=== PATIENT | female | born 1965 | race African-American/Black ===

== ENCOUNTER 2016-04-28 17:27 | Emergency (ER) | payer MEDICAID ==
[~2016-04-28] VITALS: Ht 160 cm; Wt 68.0 kg
[~2016-04-28 17:27] MED LIST: CHLORPHENIRAMINE4 MG ORAL; CYCLOBENZAPRINE10 MG ORAL; IBUPROFEN600 MG ORAL; KEFLEX500 MG ORAL; LEVAQUIN500 MG ORAL; NITROFURANTOIN100 M2 ORAL; NKM; NORCO 5-325 TA1 EACH ORAL; SUDAFED60 MG ORAL
[2016-04-28 18:05] VITALS: BP 142/87
--- NOTE | 2016-04-28 18:54 | Emergency Room Report ---
History of Present Illness General Chief Complaint: Skin Rash/Abscess Source: Patient Present Illness HPI 51-year-old female presents to emergency Department complaining of multiple swollen, erythematous and very itchy lesions located on the forehead and posterior neck since yesterday. Patient states she believes she may have some spider bites or insect bites. Patient denies nausea, vomiting, fevers, chills, recent travel. Patient reports mild tenderness and states that itching is the primary symptom. Patient denies lesions elsewhere or rashes. Denies CP, Palpitations, LOC, AMS, dizziness, Changes in Vision, Sensation, paresthesias, or a sudden severe headache. Allergies: Coded Allergies: No Known Allergies (Verified Allergy, Mild, 02/22/10) Patient History Past Medical History: see triage record Past Surgical History: none Pertinent Family History: none Last Menstrual Period: 04/18/16 Now: No Immunizations: UTD Reviewed Nursing Documentation: PMH: Agreed, PSxH: Agreed Nursing Documentation-PMH Past Medical History: No Stated History Review of Systems All Other Systems: negative except mentioned in HPI Physical Exam Vital Signs Date Time Temp Pulse Resp B/P Pulse Ox O2 Delivery O2 Flow Rate FiO2 04/28/16 18:01 98.2 74 14 142/87 100 Room Air Sp02 EP Interpretation: reviewed, normal General Appearance: no apparent distress, alert, GCS 15, non-toxic Head: normocephalic, atraumatic, other - One 3mm rasied areas with erythema consistent with insect bite on the left side of the forehead Eyes: bilateral eye PERRL, bilateral eye normal inspection ENT: hearing grossly normal, normal pharynx, no angioedema, normal voice Neck: full range of motion, supple/symm/no masses, other - 3- 3mm rasied areas with erythema consistent with insect bites . on the left posterior neck. Respiratory: chest non-tender, lungs clear, normal breath sounds, no wheezing, speaking full sentences Cardiovascular #1: regular rate, rhythm, no edema Musculoskeletal: back normal, gait/station normal, normal range of motion, non- tender Neurologic: alert, oriented x3, responsive, motor strength/tone normal, sensory intact, speech normal Psychiatric: judgement/insight normal, memory normal, mood/affect normal, no suicidal/homicidal ideation Skin: normal color, no rash, warm/dry, well hydrated, other - total of 4 3mm rasied areas with erythema consistent with insect bites on the left side of the forehead and posterior neck, no evidence of secondary infection, no d/c or crusting noted. Lymphatic: no adenopathy Medical Decision Making PA Attestation Dr. Frazier is my supervising Physician whom patient management has been discussed with. Diagnostic Impression: Primary Impression: Multiple insect bites ER Course 51-year-old female presents to emergency Department complaining of multiple swollen, erythematous and very itchy lesions located on the forehead and posterior neck since yesterday. Patient states she believes she may have some spider bites or insect bites. Ddx considered but are not limited to cellulitis, scabies, insect bites, tic bites, spider bites, contact dermatitis, Drug reaction, allergic reaction, fungal infection, lice. Vital signs: are WNL, pt. is afebrile H&PE are most consistent with insect bites, no evidence of secondary bacterial infection at this time. ORDERS: none required at this time, the diagnosis is clinical ED INTERVENTIONS: -IM Benadryl DISCHARGE: At this time pt. is stable for d/c to home. Will provide printed patient care instructions, and any necessary prescriptions. Care plan and follow up instructions have been discussed with the patient prior to discharge. Last Vital Signs Date Time Temp Pulse Resp B/P Pulse Ox O2 Delivery O2 Flow Rate FiO2 04/28/16 18:05 98.2 14 142/87 100 Room Air 04/28/16 18:01 74 Disposition: HOME, SELF-CARE Condition: Stable Patient Instructions: Insect Bite, [id number] Additional Instructions: Take medications as directed. Follow up with PCP in 3-5 days Return sooner to ED if new symptoms occur, or current symptoms become worse. Do not drink alcohol, drive, or operate heavy machinery while taking hydroxyzine as this may cause drowsiness. - Please note that this Emergency Department Report was dictated using [employer] guard technology software, occasionally this can lead to erroneous entry secondary to interpretation by the dictation equipment. Lorena Joseph Apr 28, 2016 18:54
[2016-04-28] MEDS ORDERED: ANTI-ITCH28 G1 TP (18:59)
[2016-04-28] MEDS ORDERED: HM DOUBLE ANT28.4 G1 TP (18:59)
[2016-04-28] MEDS ORDERED: HYDROXYZINE HCL25 M1 PO (18:59)
[2016-04-28] MEDS ORDERED: DiphenhydrAMINE 50mg/ml Inj IM ONE (19:00)
[2016-04-28 19:06] VITALS: BP 135/81
== END 2016-04-28 19:10 | disposition home or self-care (01) ==
LOC: EMR 18:33
DX: S00.86XA Insect bite (nonvenomous) of other part of head, initial encounter (principal); S10.86XA Insect bite of other specified part of neck, initial encounter; W57.XXXA Bitten or stung by nonvenomous insect and other nonvenomous arthropods, initial encounter; Y92.9 Unspecified place or not applicable
CPT/HCPCS: 96372; 99283; J1200

== ENCOUNTER 2016-07-11 09:54 | Emergency (ER) | payer MEDICAID ==
[~2016-07-11] VITALS: Ht 160 cm; Wt 68.0 kg
[~2016-07-11 09:54] MED LIST changes: +ANTI-ITCH28 G1 TP; +HM DOUBLE ANT28.4 G1 TP; +HYDROXYZINE HCL25 M1 PO
[2016-07-11] MEDS ORDERED: AZITHROMYCIN250 MG ORAL (10:21)
[2016-07-11] MEDS ORDERED: PROMETHAZINE-C118 M1 ORAL (10:21)
[2016-07-11 10:32] VITALS: BP 132/87
[2016-07-11 10:34] VITALS: BP 132/87
--- NOTE | 2016-07-11 11:30 | Emergency Room Report ---
History of Present Illness General Chief Complaint: Upper Respiratory Illness Present Illness HPI 51-year-old female presents ED complaining of cough and congestive symptoms times one week. States that cough is productive of yellowish sputum. Patient notes chills and bodyaches. pain is 5/10, dull, nonradiating. Afebrile in triage. Denies shortness of breath. Denies earache or sore throat. States symptoms have not improved in her in fact getting worse. No other aggravating or relieving factors. Denies any other associated symptoms Allergies: Coded Allergies: No Known Allergies (Verified Allergy, Mild, 02/22/10) Patient History Past Medical History: none Past Surgical History: none Pertinent Family History: none Social History: Denies: alcohol use, drug use, smoking Last Menstrual Period: 3 weeks ago Now: No Immunizations: UTD Reviewed Nursing Documentation: PMH: Agreed, PSxH: Agreed Nursing Documentation-PMH Past Medical History: No Stated History Review of Systems All Other Systems: negative except mentioned in HPI Physical Exam Vital Signs Date Time Temp Pulse Resp B/P Pulse Ox O2 Delivery O2 Flow Rate FiO2 07/11/16 09:58 75.9 75 16 132/87 98 Room Air Sp02 EP Interpretation: reviewed, normal General Appearance: no apparent distress, alert, GCS 15, non-toxic Head: normocephalic, atraumatic Eyes: bilateral eye PERRL, bilateral eye normal inspection ENT: hearing grossly normal, normal pharynx, no angioedema, normal voice Neck: full range of motion, supple/symm/no masses Respiratory: chest non-tender, lungs clear, normal breath sounds, speaking full sentences Cardiovascular #1: regular rate, rhythm, no edema Cardiovascular #2: 2+ carotid (R), 2+ carotid (L), 2+ radial (R), 2+ radial (L) , 2+ dorsalis pedis (R), 2+ dorsalis pedis (L) Gastrointestinal: normal bowel sounds, non tender, soft, non-distended, no guarding, no rebound Rectal: deferred Genitourinary: normal inspection, no CVA tenderness Musculoskeletal: back normal, gait/station normal, normal range of motion, non- tender Neurologic: alert, oriented x3, responsive, motor strength/tone normal, sensory intact, speech normal Psychiatric: judgement/insight normal, memory normal, mood/affect normal, no suicidal/homicidal ideation Reflexes: 3+ bicep (R), 3+ bicep (L), 3+ tricep (R), 3+ tricep (L), 3+ knee (R) , 3+ knee (L) Skin: normal color, no rash, warm/dry, well hydrated Lymphatic: no adenopathy Medical Decision Making Diagnostic Impression: Primary Impression: Atypical pneumonia ER Course Hospital Course 51-year-old female presents to ED complaining of cough, bodyaches, chills x 1 week Differential diagnoses include: URI, pharyngitis, otitis media, asthma Clinical course Patient placed on stretcher. After initial history, physical exam reveals a female in no acute distress. Bilateral TM unremarkable. No pharyngeal erythema. No tonsillar exudates. No lymphadenopathy. lungs clear. abdomen soft. Given persistence of symptoms we will treat as a typical pneumonia and prescribe antibiotics Diagnosis - atypical pneumonia Stable and discharged home with Rx Zpack, cough syrup. Instructed to followup with PMD. Return to ED if symptoms recur or worsen Last Vital Signs Date Time Temp Pulse Resp B/P Pulse Ox O2 Delivery O2 Flow Rate FiO2 07/11/16 10:34 75.9 75 16 132/87 98 Room Air Status: improved Disposition: HOME, SELF-CARE Condition: Stable Scripts Codeine/Promethazine Hcl* (PROMETHAZINE-CODEINE SYRUP*) 118 Ml Syrup 5 ML ORAL Q6H Y for For Cough, #118 ML 0 Refills Prov: QUINN ACOSTA M.D. 07/11/16 Azithromycin* (ZITHROMAX*) 250 Mg Tablet 250 MG ORAL DAILY, #6 TAB 0 Refills Take two tablets by mouth today, then take one tablet by mouth daily for four days Prov: QUINN ACOSTA M.D. 07/11/16 Referrals: [facility],REFERRING (PCP) Patient Instructions: Community-Acquired Pneumonia, Adult, [id number] QUINN ACOSTA M.D. Jul 11, 2016 11:30
== END 2016-07-11 10:35 | disposition home or self-care (01) ==
LOC: EMR 10:23
DX: J18.9 Pneumonia, unspecified organism (principal)
CPT/HCPCS: 99284

== ENCOUNTER 2016-08-25 23:12 | Emergency (ER) | payer MEDICAID ==
[~2016-08-25] VITALS: Ht 167.6 cm; Wt 68.0 kg
[~2016-08-25 23:12] MED LIST changes: +AZITHROMYCIN250 MG ORAL; +PROMETHAZINE-C118 M1 ORAL
[2016-08-25 23:20] VITALS: BP 140/90
[2016-08-25 23:35] LABS: APPEARANCE,URINE CLEAR; KETONES,URINE NEGATIVE (NEGATIVE); LEUKOCYTE ESTERASE ,URINE 1+ (NEGATIVE); NITRITE,URINE NEGATIVE (NEGATIVE); PH,URINE 7 (4.5-8.0); PROTEIN,URINE NEGATIVE (NEGATIVE); UROBILINOGEN,URINE 1 MG/DL (0.0-1.0)
[2016-08-25 23:55] LABS: BACTERIA,URINE FEW /HPF; RBC,URINE 0-2 /HPF (0 - 2); SQUAMOUS EPITHELIAL CELL,UR FEW /LPF (NONE/OCC); WBC,URINE 0-2 /HPF (0 - 2)
[2016-08-26 01:20] VITALS: BP 145/91
--- NOTE | 2016-08-26 01:55 | Emergency Room Report ---
History of Present Illness General Chief Complaint: Female Urogenital Problems Source: Patient Present Illness HPI 51 YOF with prior history of trichomonas STD came for "STD check" because condom broke last night during intercourse. Denies dysuria, polyuria, abd pain, fever/chills. Allergies: Coded Allergies: No Known Allergies (Verified , 08/25/16) Patient History Past Medical History: none Past Surgical History: none Pertinent Family History: none Social History: Denies: alcohol use, drug use, smoking Last Menstrual Period: 07/18/16 Now: No Immunizations: UTD Reviewed Nursing Documentation: PMH: Agreed, PSxH: Agreed Nursing Documentation-PMH Past Medical History: No Stated History Review of Systems All Other Systems: negative except mentioned in HPI Physical Exam Vital Signs Date Time Temp Pulse Resp B/P Pulse Ox O2 Delivery O2 Flow Rate FiO2 08/25/16 23:13 98.2 69 16 140/90 100 Room Air Sp02 EP Interpretation: reviewed, normal General Appearance: normal inspection, well appearing, no apparent distress, alert, GCS 15, non-toxic Head: normocephalic, atraumatic Eyes: bilateral eye EOMI, bilateral eye PERRL ENT: normal ENT inspection, hearing grossly normal, normal voice Neck: normal inspection, full range of motion, supple, no bony tend Respiratory: normal inspection, lungs clear, normal breath sounds, no respiratory distress, no retraction, no wheezing Cardiovascular #1: regular rate, rhythm, no edema Gastrointestinal: normal inspection, normal bowel sounds, non tender, soft, no guarding, no hernia Genitourinary: no CVA tenderness Musculoskeletal: normal inspection, back normal, normal range of motion, Jaylin' s Sign negative Neurologic: normal inspection, alert, oriented x3, responsive, storekeeper engineering III-XII nml as tested, motor strength/tone normal, speech normal Psychiatric: normal inspection, judgement/insight normal, mood/affect normal Skin: normal inspection, normal color, no rash Lymphatic: normal inspection Medical Decision Making Diagnostic Impression: Primary Impression: Exposure to STD ER Course Not UA grossly normal Advised PMD followup or STD clinic for STD checks DC Last Vital Signs Date Time Temp Pulse Resp B/P Pulse Ox O2 Delivery O2 Flow Rate FiO2 08/26/16 01:20 98.2 71 19 145/91 100 Room Air Status: improved Disposition: HOME, SELF-CARE Condition: Improved Patient Instructions: Dysuria JARRELL MAN M.D. Aug 26, 2016 01:55
== END 2016-08-26 01:20 | disposition home or self-care (01) ==
LOC: EMR 23:58
DX: Z20.2 Contact with and (suspected) exposure to infections with a predominantly sexual mode of transmission (principal)
CPT/HCPCS: 81003; 81025; 99283

== ENCOUNTER 2017-04-24 03:01 | Emergency (ER) | payer MEDICAID ==
[~2017-04-24] VITALS: Ht 160 cm; Wt 72.6 kg
[2017-04-24 03:51] LABS: APPEARANCE,URINE SLIGHTLY CLOUDY; BILIRUBIN, URINE NEGATIVE (NEGATIVE); COLOR,URINE PALE YELLOW; GLUCOSE, URINE (UA) NEGATIVE (NEGATIVE); KETONES,URINE NEGATIVE (NEGATIVE); LEUKOCYTE ESTERASE ,URINE NEGATIVE (NEGATIVE); NITRITE,URINE NEGATIVE (NEGATIVE); PH,URINE 6.5 (4.5-8.0); PROTEIN,URINE NEGATIVE (NEGATIVE); UROBILINOGEN,URINE NORMAL MG/DL (0.0-1.0)
--- NOTE | 2017-04-24 05:32 | Emergency Room Report ---
History of Present Illness General Chief Complaint: Lower Back Pain or Injury Source: Patient Present Illness HPI 52-year-old female presents to ED for evaluation. Patient complaining of bilateral flank/back pain. Has been there for approximately one to 2 years now. Sharp,7/10, intermittent, worse with positional changes. Denies dysuria or hematuria. Denies fevers or chills. Denies nausea or vomiting. No other aggravating or leading factors. Denies any other associated symptoms Allergies: Coded Allergies: No Known Allergies (Verified , 08/25/16) Patient History Past Medical History: none Past Surgical History: none Pertinent Family History: none Social History: Denies: smoking, alcohol use, drug use Last Menstrual Period: 03/18/17 Now: No Immunizations: UTD Reviewed Nursing Documentation: PMH: Agreed, PSxH: Agreed Nursing Documentation-PMH Past Medical History: No Stated History Review of Systems All Other Systems: negative except mentioned in HPI Physical Exam Vital Signs Date Time Temp Pulse Resp B/P (MAP) Pulse Ox O2 Delivery O2 Flow Rate FiO2 04/24/17 03:17 97.9 69 20 125/85 97 Room Air Sp02 EP Interpretation: reviewed, normal General Appearance: no apparent distress, alert, GCS 15, non-toxic Head: normocephalic, atraumatic Eyes: bilateral eye normal inspection, bilateral eye PERRL ENT: hearing grossly normal, normal pharynx, no angioedema, normal voice Neck: full range of motion, supple/symm/no masses Respiratory: chest non-tender, lungs clear, normal breath sounds, speaking full sentences Cardiovascular #1: regular rate, rhythm, no edema Cardiovascular #2: 2+ carotid (R), 2+ carotid (L), 2+ radial (R), 2+ radial (L) , 2+ dorsalis pedis (R), 2+ dorsalis pedis (L) Gastrointestinal: normal bowel sounds, non tender, soft, non-distended, no guarding, no rebound Rectal: deferred Genitourinary: normal inspection, CVA tenderness (R), CVA tenderness (L) Musculoskeletal: back normal, gait/station normal, normal range of motion, non- tender Neurologic: alert, oriented x3, responsive, motor strength/tone normal, sensory intact, speech normal Psychiatric: judgement/insight normal, memory normal, mood/affect normal, no suicidal/homicidal ideation Reflexes: 3+ bicep (R), 3+ bicep (L), 3+ tricep (R), 3+ tricep (L), 3+ knee (R) , 3+ knee (L) Skin: normal color, no rash, warm/dry, well hydrated Lymphatic: no adenopathy Medical Decision Making Diagnostic Impression: Primary Impression: Kidney stone ER Course Hospital Course 52-year-old F presents to ED with bilateral flank pain Differential diagnosis includes- muscle strain, kidney stone, pyelonephritis Clinical course Patient placed on stretcher. After initial history and physical I ordered UA Labs - UA shows hematuria, no bacteria CT scan shows nonobstructive renal stones. no hydroureter, no hydronephrosis Discussed findings with the patient. No acute intervention at this time. Recommended close followup with urology. I feel this is a highly complex case requiring extensive working including EKG/ Rhythm strip, Xray/CT/US, Blood/urine lab work, repeat exams while in ED, and administration of strong opiates/narcotics for pain control, admission to hospital or close patient follow up. Diagnosis - kidney stone Stable and discharged to home. Followup with urology. Return to ED if symptoms recur or rsen Labs Test 04/24/17 03:44 Urine Color Pale yellow Urine Appearance Slightly cloudy Urine pH 6.5 (4.5-8.0) Urine Specific Otis 1.015 (1.005-1.035) Urine Protein Negative (NEGATIVE) Urine Glucose (UA) Negative (NEGATIVE) Urine Ketones Negative (NEGATIVE) Urine Occult Blood 5+ (NEGATIVE) Urine Nitrite Negative (NEGATIVE) Urine Bilirubin Negative (NEGATIVE) Urine Urobilinogen Normal MG/DL (0.0-1.0) Urine Leukocyte Esterase Negative (NEGATIVE) Urine RBC Tntc /HPF (0 - 2) Urine WBC 0-2 /HPF (0 - 2) Urine Squamous Epithelial Cells Few /LPF (NONE/OCC) Urine Bacteria Few /HPF (NONE) Urine Mucus Moderate /LPF (NONE/OCC) CT/MRI/US Diagnostic Results CT/MRI/US Diagnostic Results : Imaging Test Ordered: CT A/P Impression nonobstructive renal stones. no hydronephrosis or hydroureter Last Vital Signs Date Time Temp Pulse Resp B/P (MAP) Pulse Ox O2 Delivery O2 Flow Rate FiO2 04/24/17 03:17 97.9 69 20 125/85 97 Room Air Status: improved Disposition: HOME, SELF-CARE Condition: Stable QUINN ACOSTA M.D. Apr 24, 2017 05:32
[2017-04-24 05:54] VITALS: BP 119/84
[2017-04-24 05:55] VITALS: BP 125/85
--- NOTE | 2017-04-24 13:05 | Diagnostic Imaging Report ---
Indication: Flank pain Technique: CT of the abdomen and pelvis utilizing automated exposure control without intravenous or oral contrast. CT dose: Total DLP 1112.34 mGycm; CTDI vol 24.1 mGy Comparison: None Findings: Please note that evaluation of the abdominal and pelvic viscera is limited without the use of intravenous or oral contrast. Within these limitations, the following observations are made: Dependent atelectasis noted in the lung bases. Heart size is within normal limits. No pericardial effusion. Gallbladder is contracted, possibly related to postprandial state. Noncontrast evaluation of the liver, spleen, adrenal glands and pancreas is grossly unremarkable. There is a punctate, nonobstructing stone in the midpole of the left kidney. No evidence of hydronephrosis bilaterally. The bladder is unremarkable in appearance. Uterus and adnexa are poorly evaluated on noncontrast CT. The contour of the uterus may be lobular. Multiple pelvic phleboliths noted. Small hiatal hernia. No evidence of bowel obstruction. No free intraperitoneal air. Appendix is normal. No bulky lymphadenopathy. Abdominal aorta normal in caliber. Likely small bone island in the posterior right acetabulum. No acute osseous abnormality seen. There are degenerative changes of the spine. IMPRESSION: Limited exam without intravenous or oral contrast: Punctate nonobstructing left renal stone. No evidence of hydronephrosis or obstructive uropathy bilaterally. Question lobular contour of the uterus, possibly uterine fibroids. Recommend correlation with pelvic ultrasound on nonemergent basis for confirmation. The CT scanner at [facility] is accredited by the [employer] and the scans are performed using protocols designed to limit radiation exposure to as low as reasonably achievable to attain images of sufficient resolution adequate for diagnostic evaluation.
== END 2017-04-24 05:55 | disposition home or self-care (01) ==
LOC: EMR 04:00
DX: N20.0 Calculus of kidney (principal)
CPT/HCPCS: 74176; 81003; 99284

== ENCOUNTER 2018-02-25 04:49 | Emergency (ER) | payer MEDICAID ==
[~2018-02-25] VITALS: Ht 160 cm; Wt 83.0 kg
[2018-02-25 05:18] VITALS: BP 126/81
[2018-02-25 05:42] VITALS: BP 121/75
[2018-02-25 05:43] VITALS: BP 121/75
[2018-02-25] MEDS ORDERED: IBUPROFEN600 MG ORAL (05:47)
[2018-02-25] MEDS ORDERED: AMOXICILLIN500 MG ORAL (05:47)
--- NOTE | 2018-02-25 21:36 | Emergency Room Report ---
History of Present Illness General Chief Complaint: Sore Throat Source: Patient Present Illness HPI 52-year-old female presents to ED for evaluation. Complaining of sore throat and earache 2 weeks. Denies cough. Denies fevers or chills. States she is using [id number] medications without relief. Pain is throbbing, 8 out of 10, nonradiating. Patient also complaining of abdominal pain. States she's had it on and off for the last 2 years. Denies pain at this time. pain is in the left upper quadrant. States that she did not see her PMD at about the abdominal pain. No other aggravating relieving factors. Denies any other associated symptoms Allergies: Coded Allergies: No Known Allergies (Verified , 08/25/16) Patient History Past Medical History: none Past Surgical History: none Pertinent Family History: none Social History: Denies: smoking, alcohol use, drug use Last Menstrual Period: september 2017 Now: No Immunizations: UTD Reviewed Nursing Documentation: PMH: Agreed; PSxH: Agreed Nursing Documentation-PMH Past Medical History: No Stated History Review of Systems All Other Systems: negative except mentioned in HPI Physical Exam Vital Signs Date Time Temp Pulse Resp B/P (MAP) Pulse Ox O2 Delivery O2 Flow Rate FiO2 02/25/18 05:09 98.2 85 16 126/81 98 Sp02 EP Interpretation: reviewed, normal General Appearance: no apparent distress, alert, GCS 15, non-toxic Head: normocephalic, atraumatic Eyes: bilateral eye normal inspection, bilateral eye PERRL ENT: hearing grossly normal, normal pharynx, no angioedema, normal voice, pharyngeal erythema, other - cloudy TM bilaterally Neck: full range of motion, supple/symm/no masses Respiratory: chest non-tender, lungs clear, normal breath sounds, speaking full sentences Cardiovascular #1: regular rate, rhythm, no edema Cardiovascular #2: 2+ carotid (R), 2+ carotid (L), 2+ radial (R), 2+ radial (L) , 2+ dorsalis pedis (R), 2+ dorsalis pedis (L) Gastrointestinal: normal bowel sounds, non tender, soft, non-distended, no guarding, no rebound Rectal: deferred Genitourinary: normal inspection, no CVA tenderness Musculoskeletal: back normal, gait/station normal, normal range of motion, non- tender Neurologic: alert, oriented x3, responsive, motor strength/tone normal, sensory intact, speech normal Psychiatric: judgement/insight normal, memory normal, mood/affect normal, no suicidal/homicidal ideation Reflexes: 3+ bicep (R), 3+ bicep (L), 3+ tricep (R), 3+ tricep (L), 3+ knee (R) , 3+ knee (L) Skin: normal color, no rash, warm/dry, well hydrated Lymphatic: no adenopathy Medical Decision Making Diagnostic Impression: Primary Impression: Pharyngitis Qualified Codes: J02.9 - Acute pharyngitis, unspecified ER Course Hospital Course 52-year-old female presents to ED complaining of sore throat + earache x 2 weeks Differential diagnoses include: URI, pharyngitis, otitis media Clinical course Patient placed on stretcher. After initial history, physical exam reveals a middle aged female in no acute distress. Bilateral TM cloudy TM. There is minimal pharyngeal erythema w/o tonsillar exudates. No lymphadenopathy. Likely URI. However given symptoms have not resolved in 2 weeks with over-the- counter treatment we will prescribe antibiotics Abdomen soft at this time. No guarding or rebound. I explained that if symptoms have occurred on and off for 2 years patient can follow-up with PMD as outpatient. Also no pain at this time. Diagnosis - pharyngitis Stable and discharged home with prescriptions for Motrin, amoxicillin. Instructed to followup with PMD. return to ED if symptoms recur or worsen Last Vital Signs Date Time Temp Pulse Resp B/P (MAP) Pulse Ox O2 Delivery O2 Flow Rate FiO2 02/25/18 05:43 98.2 73 17 121/75 99 Status: improved Disposition: HOME, SELF-CARE Condition: Stable Scripts Ibuprofen* (MOTRIN*) 600 Mg Tablet 600 MG ORAL Q8H PRN for For Pain, #30 TAB 0 Refills Prov: Manjit Hernadez MD 02/25/18 Amoxicillin* (AMOXIL*) 500 Mg Capsule 500 MG ORAL THREE TIMES A DAY, #21 CAP Prov: Manjit Hernadez MD 02/25/18 Referrals: Pasha Suggs MD NOT CHOSEN [facility],REFERRING (PCP) Babak Siddiqui MD Patient Instructions: Pharyngitis, [id number] Manjit Hernadez MD Feb 25, 2018 21:36
== END 2018-02-25 05:54 | disposition home or self-care (01) ==
LOC: EMR 05:39
DX: J02.9 Acute pharyngitis, unspecified (principal); H92.09 Otalgia, unspecified ear; R10.12 Left upper quadrant pain
CPT/HCPCS: 99283

== ENCOUNTER 2018-06-14 15:38 | Emergency (ER) | payer MEDICAID ==
[~2018-06-14] VITALS: Ht 160 cm; Wt 90.7 kg
[~2018-06-14 15:38] MED LIST changes: +AMOXICILLIN500 MG ORAL
--- NOTE | 2018-06-14 16:05 | NUR ---
ED Nurse Note: PT WALKED IN TO ER TODAY FROM HOME. AOX4. PT C/O SORETHROAT RADIATING TO RIGHT EAR, PAIN 10/10 X 1 MONTH AGO. PT DENIES FEVER OR COUGH. NO SIGNS OF RESPIRATORY DISTRESS OR RETRACTIONS NOTED.
[2018-06-14 16:06] VITALS: BP 162/82
--- NOTE | 2018-06-14 16:23 | Emergency Room Report ---
History of Present Illness General Chief Complaint: Sore Throat Source: Patient Present Illness HPI 53 YO Female presents to the emergency department complaining of nasal congestion, rhinorrhea, 10/10 in severity sore throat and right ear pain 2 and half weeks. Patient denies fevers or chills she reports she's been around a lot of sick children she denies history of immunocompromise or smoking. Denies neck pain/stiffness or LOW. reports coughing up phlegm. no aggravating or relieving factors at this time. pt. has not tried any OTC medications. Allergies: Coded Allergies: No Known Allergies (Verified , 08/25/16) Patient History Past Medical History: see triage record Past Surgical History: none Pertinent Family History: none Now: No Reviewed Nursing Documentation: PMH: Agreed; PSxH: Agreed Nursing Documentation-PMH Past Medical History: No Stated History Review of Systems All Other Systems: negative except mentioned in HPI Physical Exam Vital Signs Date Time Temp Pulse Resp B/P (MAP) Pulse Ox O2 Delivery O2 Flow Rate FiO2 06/14/18 15:43 98.8 84 19 174/99 97 Room Air Sp02 EP Interpretation: reviewed, normal General Appearance: no apparent distress, alert, GCS 15, non-toxic Head: normocephalic, atraumatic Eyes: bilateral eye normal inspection, bilateral eye PERRL ENT: hearing grossly normal, normal voice, TMs + canals normal, uvula midline, nasal congestion, pharyngeal erythema Neck: full range of motion, no meningismus, no bony tend Respiratory: chest non-tender, lungs clear, normal breath sounds, no respiratory distress, no wheezing, speaking full sentences Cardiovascular #1: regular rate, rhythm Musculoskeletal: back normal, gait/station normal, normal range of motion, non- tender Neurologic: alert, oriented x3, responsive, motor strength/tone normal, sensory intact, speech normal, grossly normal Psychiatric: judgement/insight normal Skin: normal color, no rash, warm/dry, well hydrated Lymphatic: no adenopathy Medical Decision Making PA Attestation Dr. odell is my supervising Physician whom patient management has been discussed with. Diagnostic Impression: Primary Impression: Upper respiratory infection, viral Additional Impression: Post-nasal drainage ER Course 53 YO Female presents to the emergency department complaining of nasal congestion, rhinorrhea, 10/10 in severity sore throat and right ear pain 2 and half weeks. Patient denies fevers or chills she reports she's been around a lot of sick children she denies history of immunocompromise or smoking. Denies neck pain/stiffness or LOW. reports coughing up phlegm. no aggravating or relieving factors at this time. pt. has not tried any OTC medications. Ddx considered but are not limited to URI, pneumonia, PE, strep pharyngitis, meningitis. Vital signs: Pt. is afebrile, the remaining VS are WNL H&PE are most consistent with URI- no meningeal signs, oropharynx is not involved, no evidence of bacterial infection at this time. ORDERS: none required at this time, the diagnosis is clinical ED INTERVENTIONS: None required at this time. --PT. EDUCATION: Discussed antibiotic resistance with inappropriate prescribing of antibiotics for viral illnesses. Discussed signs and symptoms to indicate viral illness versus bacterial illness. DISCHARGE: At this time pt. is stable for d/c to home. Will provide printed patient care instructions, and any necessary prescriptions. Care plan and follow up instructions have been discussed with the patient prior to discharge. Last Vital Signs Date Time Temp Pulse Resp B/P (MAP) Pulse Ox O2 Delivery O2 Flow Rate FiO2 06/14/18 16:06 98.6 82 18 162/82 99 Room Air Disposition: HOME, SELF-CARE Condition: Stable Scripts Codeine/Promethazine Hcl* (PROMETHAZINE-CODEINE SYRUP*) 118 Ml Syrup 5 ML ORAL Q6H PRN for For Cough, #120 ML 0 Refills Prov: Lorena Joseph 06/14/18 Cetirizine Hcl/Pseudoephedrine (ZYRTEC-D TABLET) 1 Each Tab.er.12h 1 EACH ORAL Q12HR, #20 TAB Prov: Lorena Joseph 06/14/18 Guaifenesin (Guaifenesin) 1,200 Mg Tab.er.12h 1200 MG PO Q12HR, #20 TAB Prov: Lorena Joseph 06/14/18 Patient Instructions: Sore Throat, Upper Respiratory Infection, Adult, Easy-to- Read Additional Instructions: Take medications as directed. Follow up with a Primary Care Provider in 3-5 days, even if your symptoms have resolved. --Please review list of primary care clinics, if you do not already have a primary care provider Return sooner to ED if new symptoms occur, or current symptoms become worse. Do not drink alcohol, drive, or operate heavy machinery while taking Cough Syrup as this may cause drowsiness. - Please note that this Emergency Department Report was dictated using [email or web address] quality engineer technology software, occasionally this can lead to erroneous entry secondary to interpretation by the dictation equipment. Lorena Joseph Jun 14, 2018 16:23
[2018-06-14] MEDS ORDERED: GUAIFENESIN1200 MG PO (16:26)
[2018-06-14] MEDS ORDERED: PROMETHAZINE-C118 M1 ORAL (16:26)
[2018-06-14] MEDS ORDERED: ZYRTEC-D TABLE1 EACH ORAL (16:26)
--- NOTE | 2018-06-14 16:33 | NUR ---
ED Nurse Note: PT SITTING PEACEFULLY IN BED IN NAD. AOX4. PRESCRIPTIONS AND DISCHARGE PAPERWORK EXPLAINED TO PT. PT VERBALIZES UNDERSTANDING AND ALL QUESTIONS ANSWERED. PRESCRIPTIONS AND DISCHARGE PAPERWORK GIVEN TO PT AND ID WRISTBAND REMOVED. PT WALKED OUT OF ER WITH STEADY GAIT AND ALL BELONGINGS.
[2018-06-14 16:34] VITALS: BP 158/82
== END 2018-06-14 16:35 | disposition home or self-care (01) ==
LOC: EMR 16:15
DX: J06.9 Acute upper respiratory infection, unspecified (principal); R09.82 Postnasal drip
CPT/HCPCS: 99282